=== PATIENT | female | born 2000 | race African-American/Black ===

== ENCOUNTER 2024-11-29 18:08 | Emergency (ER) | payer MEDICARE, SELFPAY ==
[2024-11-29 18:12] VITALS: BP 141/80
[2024-11-29 18:41] LABS: % Basophils 0.3 % (0-2); % Eosinophils 2.8 % (0-6); % Immature Granulocytes 0.4 % (0-0.5); % Lymphocytes 25.8 % (20.5-51.1); % Monocytes 4.5 % (1.7-9.3); % Neutrophils 66.2 % (42.2-75.2); Absolute Eosinophils 0.3 10^3/uL (0-0.7); Absolute Lymphocytes 2.6 10^3/uL (1.2-3.4); Absolute Monocytes 0.5 10^3/uL (0.1-0.6); Absolute Neutrophils 6.7 10^3/uL (1.4-6.5); Hematocrit 44.3 % (37.0-47.0); Hemoglobin 14.2 g/dL (12.0-16.0); Mean Corp Hgb Conc. 32.1 g/dL (33.0-37.0); Mean Corpuscular Hgb 27.9 pg (27.0-31.0); Mean Platelet Volume 8.8 fL (7.4-10.4); Nucleated Red Blood Cells % 0 %; Platelet Count 318 10^3/uL (130-400); Red Blood Cell Count 5.09 10^6/uL (4.20-5.40); Red Cell Dist. Width 14.2 % (11.5-14.5); White Blood Cell Count 10.1 10^3/uL (4.8-10.8)
[2024-11-29 18:47] LABS: Urine Albumin 2+ (Neg - Trace); Urine Bilirubin Negative (Negative); Urine Character Slightly Cloudy (Clear); Urine Color Yellow; Urine Glucose Negative (Negative); Urine Ketone Negative (Negative); Urine Leukocyte 2+ (Negative); Urine Nitrite Negative (Negative); Urine Occult Blood Negative (Negative); Urine Specific Gravity 1.015 (<1.030); Urine Urobilinogen 1+ (Neg - 1+); Urine pH 6.5 (5.0-9.0)
[2024-11-29 18:57] LABS: ALT (SGPT) 15 U/L (0-35); AST (SGOT) 18 U/L (14-36); Albumin 3.8 g/dl (3.5-5.0); Alkaline Phosphatase 55 U/L (38-126); Blood Urea Nitrogen 13 mg/dl (7-17); Calcium 9.4 mg/dl (8.4-10.2); Carbon Dioxide 29 mmol/L (22-30); Chloride 102 mmol/L (98-107); Glucose 149 mg/dl (70-99); HCG, Serum Qualitative Screen Negative; Lipase 50 U/L (23-300); Potassium 3.9 mmol/L (3.5-5.1); Sodium 141 mmol/L (135-145); Total Bilirubin 0.5 mg/dl (0.2-1.3); Total Protein 6.8 g/dl (6.3-8.2); eGFR > 60.00
[2024-11-29 19:41] VITALS: BP 147/94
--- NOTE | 2024-11-29 19:59 | ED.GENMED ---
History of Present Illness
General
Chief Complaint: Abdominal Pain
Source: patient and family
Exam Limitations: none
Time Seen by Provider: 11/29/24 19:41
Nursing documentation reviewed up to this point in time: agreed with
History of Present Illness
History of Present Illness:
24-year-old female presents emergency room due to right sided pain that began yesterday. She states it was up and down her right side and hurts when she moves. She denies any fall or injury. She denies any nausea vomiting or diarrhea. She has
had an intermittent cough. No fevers.
Past History
Past History
ED Past Medical History: Psychiatric (Schizophrenia)
ED Past Surgical History: Tonsilectomy (Tonsils and adenoids)
Social History
Tobacco: Non-smoker
Alcohol: None
Drug: None
Living: with family
Review of Systems
Review of Systems
Allergies reviewed?: Yes
All Other Systems: Not applicable
Constitutional: Reports no symptoms
EENT: Reports no symptoms
Respiratory: Reports cough
Cardiac: Reports no symptoms
ABD/GI: Reports no symptoms
: Reports flank pain
Musculoskeletal: Reports back pain
Skin: Reports no symptoms
Neurological: Reports no symptoms; Denies weakness or numbness
Endocrine: Reports no symptoms
Hematologic/Lymphatic: Reports no symptoms
Psychiatric: Reports no symptoms
Phy Exam
Physical Exam
Physical Exam:
Physical Exam
General: no apparent distress, not acutely ill
Neck: supple. no meningeal signs. normal posterior pharynx
Heart: s1/s2 regular rate and rhythm, no murmur. equal radial
pulses.
HEENT: Pupils equal round reactive to light, EOMI
Lungs: no acute respiratory distress. clear bilaterally
Abdomen: normal bowel sounds. Mild right upper quadrant tenderness. Mild right CVA tenderness
Neuro: alert and oriented. no focal neurological deficits cranial nerves II through XII intact
Skin: no rash
Psychiatric: well kept. interactive and cooperative
Extremities: no edema. no calf tenderness. negative homans. good distal pulses
Course
Orders/Labs/Results
Orders:
Orders
11/29/24 18:20
Test Result ONCE
11/29/24 18:30
Complete Blood Count/With Diff Urgent
Comprehensive Metabolic Panel Urgent
HCG, Serum Qualitative Screen Urgent
Lipase Urgent
Urinalysis Reflex To Culture Urgent
Date Specimen was Collected: 11/29/24
Time Specimen was Collected: 18:26
Urine Microscopic Reflex Cult Urgent
Urine Culture Urgent
JEOVANY Source: U
Specimen Description:
Date Specimen was Collected: 11/29/24
Time Specimen was Collected: 18:26
11/29/24 19:58
CR Chest - 2 Views Urgent
Comment:
Reason For Exam: cough, right sided pain
US Abdomen Complete/Upper Urgent
Comment:
Reason For Exam: RUQ pain, tenderness
11/29/24 21:48
Ketorolac [Toradol] 15 mg IV NOW STA
11/29/24 21:54
Ketorolac [Toradol] 15 mg IM NOW STA
Abnormal Lab Results
11/29/24
18:30
MCHC 32.1 L g/dL
(33.0-37.0)
Absolute Neuts (auto) 6.7 H 10^3/uL
(1.4-6.5)
Glucose 149 H mg/dl
(70-99)
Leukocyte Esterase Rfl 2+ A
(Negative)
Urine WBC (Reflex) 11-15 A /HPF
(0-5)
Urine Bacteria (Reflex) Moderate A
(Negative)
Urine Albumin (Reflex) 2+ A
(Neg - Trace)
11/29/24 18:30
11/29/24 18:30
Vital Signs
Initial and Last Documented VS:
Initial Vital Signs
Temp Pulse Resp BP Pulse Ox
97.9 F 107 28 141/80 94
11/29/24 18:12 11/29/24 18:12 11/29/24 18:12 11/29/24 18:12 11/29/24 18:12
Last Documented Vital Signs
Temp Pulse Resp BP Pulse Ox
97.9 F 97 20 157/95 92
11/29/24 18:12 11/29/24 22:22 11/29/24 22:22 11/29/24 22:22 11/29/24 22:22
MDM/Problems Addressed
Differential Diagnosis Includes:
Kidney stone, UTI, cholecystitis
MDM/Problems Addressed:
24-year-old female with right flank pain, likely musculoskeletal. Improved with IV Toradol. Do not suspect kidney stone, UTI or cholecystitis. No right lower quadrant tenderness. Doubt appendicitis. Stable for discharge.
Chronic conditions affecting care: Psychiatric illness
*Radiology
Radiology exam reviewed: radiology read reviewed (Ultrasound abdomen no acute findings, chest x-ray no acute)
*Pulse Oximetry
Patient hypoxic: no
*Critical Care Note
Total Time (30-74mins, 75-104mins- exclusive of procedures): Not Applicable
Data Reviewed
Further Testing Considered But Not Given:
CT ab pelvis not indicated
Patient Management
Social determinants of health affecting care: Living situation and Strong social support
Escalation/DeEscalation of care consider admission/obs:
Admission not indicated
ED Attending Note
-
Portions of this chart may have been created with voice recognition software.� Occasional wrong word or��sound alike� substitutions may have occurred due to the inherent limitations of voice recognition software.
Discharge Plan
Departure
Patient Disposition: Home (Routine Discharge)
Date of Disposition: 11/29/24
Time of Disposition: 22:29
Patient with high blood pressure during this ER visit?: Yes
Condition: Good
Discharge Problem:
Strain of mid-back
Instructions: Flank pain - ED discharge instructions, BLOOD PRESSURE
Referrals:
Naina Oates MD [Family Provider] - Call in 1-3 days for appt
Interventions
Interventions:
*Risk Screen - Suicide Last Done: 11/29/24 20:15
*General Assessment Last Done: 11/29/24 20:15
*Neglect/Abuse Screening Last Done: 11/29/24 20:15
*ED- Fall Risk Assessment Last Done: 11/29/24 20:15
*ED COVID-19 Vaccine History Last Done: 11/29/24 20:15
*Nursing Disposition Last Done: 11/29/24 22:47
KT-[id number] Assessment Last Done: 11/29/24 20:09
Discharge Date and Time
Discharge Date/Time: 11/29/24 22:47
Print Language: BARBADIAN
[2024-11-29 20:46] LABS: Urine Bacteria Moderate (Negative); Urine Red Blood Cell 0-2 /HPF (0-2); Urine Squamous Cell >30 /LPF (Few)
[2024-11-29] MEDS: TORADOL 15 MG IM (21:54)
[2024-11-29 22:22] VITALS: BP 157/95
== END 2024-11-29 22:47 | disposition home or self-care (01) ==
LOC: EMR 18:08
PROVIDERS: Emergency Medicine; EMERGENCY PHYSICIAN Emergency Medicine; FAMILY PHYSICIAN Internal Medicine
DX: S29.012A Strain of muscle and tendon of back wall of thorax, initial encounter (principal); X58.XXXA Exposure to other specified factors, initial encounter; R05.9 Cough, unspecified
CPT/HCPCS: 96372; 99284; 71046; 76700; 80053; 81003; 81015; 83690; 84703; 85025; 87086